=== PATIENT | male | born 1965 | race Hispanic/Latino ===

== ENCOUNTER 2017-06-23 19:27 | Emergency (ER) | payer OTHER ==
[2017-06-23 20:10] VITALS: BP 137/86
--- NOTE | 2017-06-23 20:34 | Emergency Department Report ---
ED General Adult HPI - General Chief complaint: Extremity Injury, Lower Stated complaint: BLEEDING LOWER LF LEG Time Seen by Provider: 06/23/17 20:25 Source: patient, EMS (ems notes not available at time of chart dictation), RN notes reviewed Mode of arrival: Stretcher Limitations: No Limitations - History of Present Illness Initial comments: This is a 52-year-old male, patient recently admitted to [facility] for left lower extremity cellulitis, patient had a debridement earlier on today by Dr. Pretty, presents to the ER with resolved left lower extremity bleeding. He has no headache, neck pain, chest pain, abdominal pain or shortness of breath. He does describe chronic swelling of the left lower extremity, reports multiple negative ultrasounds for DVT, and negative CAT scans for lower extremity DVT as well. He has no complaints, his symptoms have since resolved. -: Gradual Location: left, lower extremity Severity scale (0 -10): 7 Consistency: now resolved Improves with: none Worsens with: none Associated Symptoms: denies other symptoms - Related Data Allergies Allergy/AdvReac Type Severity Reaction Status Date / Time No Known Allergies Allergy Unverified 06/23/17 19:38 ED Review of Systems ROS: Stated complaint: BLEEDING LOWER LF LEG Other details as noted in HPI Constitutional: denies: fever Eyes: denies: vision change ENT: denies: epistaxis Respiratory: denies: cough Cardiovascular: denies: chest pain Gastrointestinal: denies: abdominal pain Genitourinary: denies: dysuria Musculoskeletal: arthralgia, myalgia Skin: rash, lesions Neurological: denies: weakness ED Past Medical Hx - Past Medical History Previous Medical History?: Yes Hx Psychiatric Treatment: No (depression) Additional medical history: cellulitis - Surgical History Past Surgical History?: Yes Additional Surgical History: wound debridement @ [facility] today (06/23/17) ED Physical Exam - General Limitations: Physical Limitation General appearance: alert, in no apparent distress, obese - Head Head exam: Present: atraumatic, normocephalic - Eye Eye exam: Present: normal appearance, EOMI. Absent: nystagmus - ENT ENT exam: Present: normal exam, normal orophraynx, mucous membranes moist, normal external ear exam - Neck Neck exam: Present: normal inspection, full ROM. Absent: tenderness, meningismus - Respiratory Respiratory exam: Present: normal lung sounds bilaterally. Absent: respiratory distress, wheezes, rales, rhonchi, stridor, chest wall tenderness, accessory muscle use, decreased breath sounds, prolonged expiratory - Cardiovascular Cardiovascular Exam: Present: regular rate, normal rhythm, normal heart sounds. Absent: bradycardia, tachycardia, irregular rhythm, systolic murmur, diastolic murmur, rubs, gallop - GI/Abdominal GI/Abdominal exam: Present: soft, normal bowel sounds, other (abdominal wall ecchymoses noted, consistent with recent history of Lovenox injections). Absent : distended, tenderness, guarding, rebound, rigid, pulsatile mass - Rectal Rectal exam: Present: deferred - Extremities Exam Extremities exam: Present: full ROM, tenderness, normal capillary refill, pedal edema, calf tenderness (on the left lower extremity, there is a linear medial 6 cm surgical incision that is packed. There is no active bleeding. Compartments are soft. There is lower extremity edema bilaterally, left greater than right.) - Back Exam Back exam: Present: normal inspection, full ROM. Absent: muscle spasm, paraspinal tenderness, vertebral tenderness - Neurological Exam Neurological exam: Present: alert, oriented X3, other (Extraocular movements intact. Tongue midline. No facial droop. Facial sensation intact to light touch in the V1, V2, V3 distribution bilaterally. 5 and 5 strength in 4 extremities.. Sensation is intact to light touch in 4 extremities.). Absent: motor sensory deficit - Psychiatric Psychiatric exam: Present: normal affect, normal mood - Skin Skin exam: Present: warm, rash, erythema ED Course Vital Signs 06/23/17 06/23/17 06/23/17 19:32 19:47 20:09 Temperature 98.5 F 98.2 F Pulse Rate 80 89 86 Respiratory 18 18 12 Rate Blood Pressure 160/88 Blood Pressure 137/81 137/86 [Right] O2 Sat by Pulse 98 96 100 Oximetry ED Medical Decision Making - Lab Data Vital Signs 06/23/17 06/23/17 06/23/17 19:32 19:47 20:09 Temperature 98.5 F 98.2 F Pulse Rate 80 89 86 Respiratory 18 18 12 Rate Blood Pressure 160/88 Blood Pressure 137/81 137/86 [Right] O2 Sat by Pulse 98 96 100 Oximetry - Medical Decision Making Differential diagnosis: Postoperative bleeding, now resolved Assessment and plan: 52-year-old male, recent hospitalization at [facility] , admitted for cellulitis, patient had debridement of left lower extremity earlier on today, bleeding is now resolved, afebrile, reassuring vital signs, compartments are soft, tolerating liquid feeds, and in no distress. The patient has follow-up with his surgeon on Wednesday, he is afebrile with reassuring vital signs, and ambulatory with minimal assistance at this time. The left lower extremity is asymmetrically more swollen than the right, however patient reports this has been present for over a week, he reports 2 negative ultrasounds, and 2 negative CAT scans of the leg for blood clot. He is suitable for discharge at this point in time, he is going to follow up at the wound care center and with general surgeon, return precautions are reviewed. Critical care attestation.: If time is entered above; I have spent that time in minutes in the direct care of this critically ill patient, excluding procedure time. ED Disposition Clinical Impression: Leg wound, left Disposition: DC- TO HOME OR SELFCARE Is pt being admited?: No Does the pt Need Aspirin: No Condition: Stable Instructions: Acute Wound Care (ED) Additional Instructions: Continue current outpatient medications. Follow up with her general surgeon on Wednesday as scheduled. Discussed with her general surgeon and primary care doctor about following up in a wound care center; for the patient's convenience , this provider has attached contact information for the wound care center. Return to the ER right away with fevers, chills, chest pain, shortness of breath , intractable nausea or vomiting, confusion, inability to tolerate liquid feeds , vomiting blood, defecating blood, chest pain, loss of consciousness. Referrals: DONAVAN MCGEE MD [Primary Care Provider] - 3-5 Days ORAL ARMENDARIZ MD [Referring] - 3-5 Days [facility] [Outside] - 3-5 Days
[2017-06-23] MEDS ORDERED: NACL 0.9% 500 ML IR ONE (20:52)
== END 2017-06-23 21:14 | disposition home or self-care (01) ==
LOC: ED 19:27
DX: T81.4XXA Infection following a procedure, initial encounter (principal); X58.XXXA Exposure to other specified factors, initial encounter; Y93.89 Activity, other specified; Y99.8 Other external cause status; Y92.89 Other specified places as the place of occurrence of the external cause
CPT/HCPCS: 99283